=== PATIENT | female | born 1990 | race Caucasian/White ===

== ENCOUNTER 2024-07-31 02:04 | Emergency (ER) | payer OTHER, SELFPAY ==
[2024-07-31 02:08] VITALS: BP 181/114
[2024-07-31 02:33] LABS: % Basophils 0.7 % (0-2); % Immature Granulocytes 0.1 % (0-0.5); % Lymphocytes 21.1 % (20.5-51.1); % Monocytes 4.9 % (1.7-9.3); % Neutrophils 70.2 % (42.2-75.2); Absolute Basophils 0.1 10^3/uL (0-0.2); Absolute Eosinophils 0.3 10^3/uL (0-0.7); Absolute Lymphocytes 2.1 10^3/uL (1.2-3.4); Absolute Monocytes 0.5 10^3/uL (0.1-0.6); Hematocrit 47.8 % (37.0-47.0); Hemoglobin 16.8 g/dL (12.0-16.0); Mean Corp Hgb Conc. 35.1 g/dL (33.0-37.0); Mean Corpuscular Hgb 31.3 pg (27.0-31.0); Mean Platelet Volume 9.2 fL (7.4-10.4); Nucleated Red Blood Cells % 0 %; Platelet Count 328 10^3/uL (130-400); Red Blood Cell Count 5.37 10^6/uL (4.20-5.40); Red Cell Dist. Width 12.3 % (11.5-14.5)
[2024-07-31 02:41] LABS: HCG, Serum Qualitative Screen Negative
[2024-07-31 02:43] LABS: ALT (SGPT) 37 U/L (0-35); AST (SGOT) 26 U/L (14-36); Albumin 4.6 g/dl (3.5-5.0); Alkaline Phosphatase 74 U/L (38-126); Blood Urea Nitrogen 7 mg/dl (7-17); Calcium 9.5 mg/dl (8.4-10.2); Carbon Dioxide 21 mmol/L (22-30); Chloride 112 mmol/L (98-107); Glucose 115 mg/dl (70-99); Lipase 99 U/L (23-300); Potassium 4.1 mmol/L (3.5-5.1); Sodium 146 mmol/L (135-145); Total Bilirubin 0.4 mg/dl (0.2-1.3); Total Protein 7.6 g/dl (6.3-8.2); eGFR > 60.00
--- NOTE | 2024-07-31 03:32 | ED.GENMED ---
History of Present Illness
General
Chief Complaint: Abdominal Symptoms
Source: patient
Exam Limitations: none
Time Seen by Provider: 07/31/24 02:29
Nursing documentation reviewed up to this point in time: agreed with
History of Present Illness
History of Present Illness:
33-year-old female presents to the emergency department with 1 week of increasing abdominal pain. She has had an umbilical hernia for the last 9 years. She is states that several days ago she started to develop severe pain. She states that the
bulge in her abdomen that has been present for over the years has completely disappeared in the last 24 hours. She states that her abdominal pain has increased since then.
Past History
Past History
ED Past Medical History: None
ED Past Surgical History: Orthopedic
Social History
Tobacco: Former smoker
Alcohol: Other
Personal: Single
Living: other
Employment: Other
Family History
Family History: Other
Review of Systems
Review of Systems
Allergies reviewed?: Yes
All Other Systems: ROS reviewed and negative except as documented in HPI and ROS
Constitutional: Reports no symptoms
EENT: Reports no symptoms
Respiratory: Reports no symptoms
Cardiac: Reports no symptoms
ABD/GI: Reports abdominal pain
: Reports no symptoms
Musculoskeletal: Reports no symptoms
Skin: Reports no symptoms
Neurological: Reports no symptoms
Endocrine: Reports no symptoms
Hematologic/Lymphatic: Reports no symptoms
Psychiatric: Reports no symptoms
Phy Exam
General Physical Exam
General Presentation: well appearing and mild distress
General age: appears stated age
General Skin: warm and dry
General Habitus: normal
General Mental: alert
General Hydration: appears well hydrated
ENT Exam
ENT Exam: EOMI, pharynx normal, neck supple and normocephalic
Eye Exam
Eye Exam: PERRL, cornea clear and conjunctiva normal
Cardiovascular Exam
Cardiovascular Exam: regular rate/rhythm, no edema, no murmur and normal peripheral pulses
Pulmonary Exam
Pulmonary Exam: lungs clear, no respiratory distress, no rales, no crackles, no rhonchi, no stridor, no wheezing and no cough
Gastrointestinal Exam
Gastrointestinal Exam: normal bowel sounds, non tender, soft, no organomegaly, no pulsatile mass and non distended
Palpation: generalized: Minimal tenderness
Neurological Exam
Neurological Exam: alert, oriented x3, no motor deficits and speech normal
Musculoskeletal Exam
Musculoskeletal Exam: full ROM and no edema
Skin Exam
Skin Exam: normal color, warm/dry, no rash and no petechia
Psychiatric Exam
Psychiatric Exam: normal mood/affect
Course
Orders/Labs/Results
Orders:
Orders
07/31/24 02:14
Test Result ONCE
07/31/24 02:19
Complete Blood Count/With Diff Urgent
Comprehensive Metabolic Panel Urgent
HCG, Serum Qualitative Screen Urgent
Lipase Urgent
07/31/24 03:30
CT Abd/pel W Iv And Oral Contr Urgent
Comment:
Reason For Exam: periumbilical pain
Iohexol [Omnipaque] See Protocol PO NOW STA
07/31/24 03:48
Lactic Acid Q4H
Comment: CANCEL 2nd LACTIC ACID IF 1st LACTIC ACID IS LESS THAN 2
07/31/24 04:13
Ondansetron Injectable [Zofran] 4 mg IV NOW STA
07/31/24 08:11
Ondansetron Injectable [Zofran] 4 mg .ROUTE .STK-MED ONE
Abnormal Lab Results
07/31/24
02:19
Hgb 16.8 H g/dL
(12.0-16.0)
Hct 47.8 H %
(37.0-47.0)
MCH 31.3 H pg
(27.0-31.0)
Absolute Neuts (auto) 7.0 H 10^3/uL
(1.4-6.5)
Sodium 146 H mmol/L
(135-145)
Chloride 112 H mmol/L
(98-107)
Carbon Dioxide 21 L mmol/L
(22-30)
Glucose 115 H mg/dl
(70-99)
ALT 37 H U/L
(0-35)
07/31/24 02:19
07/31/24 02:19
Vital Signs
Initial and Last Documented VS:
Initial Vital Signs
Temp Pulse Resp BP Pulse Ox
98.2 F 118 20 181/114 97
07/31/24 02:08 07/31/24 02:08 07/31/24 02:08 07/31/24 02:08 07/31/24 02:08
Last Documented Vital Signs
Temp Pulse Resp BP Pulse Ox
98.2 F 87 20 139/105 94
07/31/24 02:08 07/31/24 08:49 07/31/24 08:49 07/31/24 08:49 07/31/24 08:49
*Critical Care Note
Total Time (30-74mins, 75-104mins- exclusive of procedures): Not Applicable
ED Attending Note
-
Portions of this chart may have been created with voice recognition software.� Occasional wrong word or��sound alike� substitutions may have occurred due to the inherent limitations of voice recognition software.
Discharge Plan
Departure
Patient Disposition: Home (Routine Discharge)
Date of Disposition: 07/31/24
Time of Disposition: 06:57
Patient with high blood pressure during this ER visit?: Yes
Discharge Problem:
Hernia, umbilical, Abdominal pain
Instructions: Abdominal Pain, BLOOD PRESSURE
Prescriptions:
No Action
ibuprofen 600 MG tablet
600 mg PO Q4HPRN PRN (Reason: moderate pain/cramps) Qty: 0 0RF
vit,[id number] [Prenatabs Rx] 1 EACH tablet
1 tab PO DAILY
Referrals:
Ken Thompson MD [Active] - As needed
Activity Restrictions/Additional Instructions:
It was a pleasure meeting you and taking part in your care. We hope for your continued healing and wellness.
Please read discharge instructions in their entirety. However, they are for general education and may not describe your exact diagnosis at discharge. Information on your ER visit and medical conditions were discussed with you along with appropriate
follow up information...
If indicated, please take your medications as instructed and indicated on discharge paperwork.
Please schedule a follow up appointment as directed. Call to schedule an appointment
Please return to the emergency department with ANY change in, persisting, or worsening of symptoms. If any of your symptoms do not improve, or persist, or become more severe within 6-12 hours, please return to the emergency department for further
care.
Please return to the emergency department if you develop a headache, neck pain/stiffness, fever greater than 100.4F, chest pain, shortness of breath, persistent nausea, vomiting, slurred speech, difficulty walking, numbness/tingling, weakness, signs
of infection or any other symptoms that are worrisome to you.
If you have any questions or concerns please do not hesitate to call the Hospital at
Interventions
Interventions:
*Risk Screen - Suicide Last Done: 07/31/24 02:05
*General Assessment Last Done: 07/31/24 02:05
*Neglect/Abuse Screening Last Done: 07/31/24 04:43
ED- Fall Risk Assessment Last Done: 07/31/24 02:11
*ED COVID-19 Vaccine History Last Done: 07/31/24 02:05
*Nursing Disposition Last Done: 07/31/24 08:49
EF-Dqudui-Efhgpevhth Assessment Last Done: 07/31/24 04:43
Discharge Date and Time
Discharge Date/Time: 07/31/24 08:51
Print Language: BENGALI
[2024-07-31] MEDS: OMNIPAQUE 50 ML PO (03:49)
[2024-07-31 03:53] VITALS: BP 140/107
[2024-07-31] MEDS: ZOFRAN 4 MG IV (04:14)
[2024-07-31 04:31] LABS: Lactic Acid 1.2 mmol/L (0.7-2.0)
[2024-07-31 08:49] VITALS: BP 139/105
== END 2024-07-31 08:51 | disposition home or self-care (01) ==
LOC: EMR 02:04
PROVIDERS: EMERGENCY PHYSICIAN Student in an Organized Health Care Education/Training Program
DX: K42.9 Umbilical hernia without obstruction or gangrene (principal); R10.9 Unspecified abdominal pain; R03.0 Elevated blood-pressure reading, without diagnosis of hypertension; Z87.891 Personal history of nicotine dependence
CPT/HCPCS: 99285; 96374; 74177; 80053; 83605; 83690; 84703; 85025; Q9967